=== PATIENT | female | born 1960 | race Caucasian/White ===

== ENCOUNTER → 2016-12-14 | Outpatient (CLI) | payer OTHER | LOC: FIMAGING 10:28 | PROVIDERS: ATTEND Family Medicine | DX: Z12.31 Encounter for screening mammogram for malignant neoplasm of breast (principal) | CPT/HCPCS: G0202 ==

== ENCOUNTER 2017-05-25 15:07 | Emergency (ER) | payer OTHER ==
[2017-05-25 15:18] VITALS: TEMP 97.7
--- NOTE | 2017-05-25 15:25 | EDPHY ---
H & P Stated Complaint: FALCON, Recent fall on 05/18, vomiting HPI/ROS: CHIEF COMPLAINT: Head injury, vomiting HISTORY OF PRESENT ILLNESS: The patient is a 56 y/o female with a history of polycystic kidney disease and chronic headaches, complaining of a head injury on 05/18/17, 1 week ago, after falling out of bed while travelling in [facility]. She is unsure what caused her to fall, but believes she stood up too fast. Denies loss of consciousness. For 1 -2 days after she fell, she felt dizzy and had a mild headache. While flying to [facility] she developed a headache and vomited--she had a similar headache with vomiting on the flight home also. Last night her headache worsened. This is not the worst headache of her life; it is consistent with previous headaches that she has experienced. However, she notes that the frequency of her headaches seems to be increasing. The pain is currently beginning in her left neck and radiates to the top of her head. Takes Aleve for her headaches but has not taken anything; Tylenol does not alleviate her headaches. Takes Lisinopril, HCTZ, and Zoloft. Denies change in vision, difficulty talking, changes in hearing, numbness or tingling in extremities, weakness in extremities, history of seizures or other pertinent symptoms. REVIEW OF SYSTEMS: A ten point review of systems was performed and is negative with the exception of the items mentioned in the HPI. Past medical history: 1. Hypertension 2. Chronic headaches 3. Polycystic kidney disease Past surgical history: 1. Appendectomy 2. Left shoulder surgery Family history: Denies Social history: Lives in [place], , works for [employer], denies tobacco use General Appearance: Alert. Vital signs reviewed. Blood pressure 154/90. Eyes: Pupils equal and round, no conjunctival injection, no discharge. Anicteric. ENT, Ears: No hemotympanum. Mouth: Mucous membranes are moist, no oropharyngeal erythema or edema. Neck: No neck tenderness to palpation. No meningeal signs. No lymphadenopathy, supple. Respiratory: Lungs are clear to auscultation; no wheezes, rales, or rhonchi. Cardiovascular: Regular rate and rhythm; no murmur, rub, or gallop. Gastrointestinal: Abdomen is soft and nontender, no masses or organomegaly, bowel sounds normal. Skin: Warm and dry, no rashes on exposed skin, normal color. Back: Nontender to palpation over the thoracolumbar spine. No CVAT. Extremities: No lower extremity edema, no calf tenderness or swelling. Neurological: Alert and oriented. Moving all four extremities easily and equally. Cranial nerves II through XII are examined and are intact (visual acuity not tested). Strength is 5 over 5 bilaterally with testing of all major motor groups. Sensation is intact to light touch over all 4 extremities. Deep tendon reflexes are 3+ in the biceps and knees bilaterally. Psychiatric: Normal affect. - Personal History Current Tetanus/Diphtheria Vaccine: Yes Current Tetanus Diphtheria and Acellular Pertussis (TDAP): Yes - Medical/Surgical History Hx Asthma: No Hx Chronic Respiratory Disease: No Hx Diabetes: No Hx Cardiac Disease: No Hx Renal Disease: Yes Hx Cirrhosis: No Hx Alcoholism: No Hx HIV/AIDS: No Hx Splenectomy or Spleen Trauma: No Other PMH: PMH: HTN, polycystic kidney disease, - Social History Smoking Status: Never smoked Constitutional: Initial Vital Signs Temperature (C) 36.5 C 05/25/17 15:13 Heart Rate 60 05/25/17 15:13 Respiratory Rate 18 05/25/17 15:13 Blood Pressure 154/90 H 05/25/17 15:13 O2 Sat (%) 98 05/25/17 15:13 O2 Delivery Mode Room Air Allergies/Adverse Reactions: No Known Allergies Allergy (Unverified 05/25/17 15:18) Home Medications: Medication Instructions Recorded HCTZ (*) 05/25/17 Lisinopril 05/25/17 Zoloft 100mg (*) 05/25/17 Medical Decision Making - Diagnostics Imaging Results: Imaging Impressions Head CT 05/25/17 15:41 Impression: Normal brain. No acute intracranial hemorrhage. Findings discussed with Emergency Department physician, Soheila Lerma M.D., on May 25, 2017 at 1614. Imaging: Discussed imaging studies w/ call center coordinator Radiologist, I viewed and interpreted images myself ED Course/Re-evaluation: The patient is a 56 y/o female with a history of chronic headaches and polycystic kidney disease, presenting with hitting her head on 05/18/17, 1 week ago, after falling out of bed while travelling in [facility]. She is now experiencing ongoing headaches associated with vomiting. Head CT ordered. 1618: Spoke with radiologist, there are no acute findings on patient's head CT. I reviewed the CT scan. 1627: Reassessed patient and discussed imaging findings. I have informed her that the CT would only be able to detect relatively large subarachnoid hemorrhage. We discussed lumbar puncture as the next approach to look for subarachnoid hemorrhage. She is declining a lumbar puncture at this time. She understands subarachnoid hemorrhage has not been completely ruled out. We also discussed CT angiogram or MR angiogram to look for aneurysms. I do not recommend either of those studies at this time. I think that this is her usual headache. I have referred her to Dr. Pradhan, neurosurgeon, and Dr. Reza, neurologist, for unimproved symptoms. Return precautions provided; patient is comfortable with this plan. She is noted to be hypertensive at triage. She has a history of hypertension and is compliant with her medications. She will have her blood pressure followed up by her primary care doctor. Differential Diagnosis: Headache including but not limited to subarachnoid hemorrhage, migraine headache , tension headache and infectious causes such as meningitis, pharyngitis and sinusitis. Departure - Departure Disposition: Home, Routine, Self-Care Clinical Impression: Headache Qualifiers: Headache type: unspecified Headache chronicity pattern: acute headache Intractability: intractable Qualified Code(s): R51 - Headache Condition: Good Instructions: Acute Headache (ED) Additional Instructions: Follow-up with your primary care physician within 72 hours. Return to the emergency department immediately for recurrence of headache, nausea, vomiting, numbness, weakness, neck pain, altered mental status, fever or other concerns. Use Tylenol and/or ibuprofen as directed for pain. If your symptoms do not improve, follow up with Dr. Pradhan, neurosurgeon, in the next week. I recommend following up with a neurologist for your headaches, you have been referred to Dr. Reza. Referrals: ARTHUR VILLALPANDO [Primary Care Provider] - As per Instructions Judah Pradhan MD [Medical Doctor] - As per Instructions Gurdeep Reza MD [Medical Doctor] - As per Instructions Report Scribed for: Soheila Lerma Report Scribed by: Neris Bowens Date of Report: 05/25/17 Time of Report: 15:25 Physician Review and Approval Statement: 05/25/17 15:25 Portions of this note were transcribed by the medical assistant supervisor. I, Dr. Soheila Lerma, personally performed the history, physical exam, and medical decision- making; and confirmed the accuracy of the information in the transcribed note.
[2017-05-25 17:16] VITALS: BP 145/81; PULSE 62; RESP 16; O2SAT 97
== END 2017-05-25 17:05 | disposition home or self-care (01) ==
DX: S09.90XA Unspecified injury of head, initial encounter (principal); I10 Essential (primary) hypertension; W06.XXXA Fall from bed, initial encounter; Y99.8 Other external cause status

== ENCOUNTER → 2018-02-01 | Outpatient (CLI) | payer OTHER | LOC: FIMAGING 12:44 | PROVIDERS: ATTEND Obstetrics & Gynecology | DX: Z12.31 Encounter for screening mammogram for malignant neoplasm of breast (principal) ==